=== PATIENT | female | born 1990 | race Caucasian/White ===

== ENCOUNTER 2017-09-25 22:47 | Emergency (ER) | payer OTHER ==
[~2017-09-25] VITALS: Ht 152.4 cm; Wt 90.7 kg
[2017-09-26] MEDS ORDERED: ZOFRAN ODT8 MG PO (06:49)
[2017-09-26] MEDS ORDERED: CIPRO500 MG PO (06:49)
[2017-09-26] MEDS ORDERED: PEPCID40 MG PO (06:49)
== END 2017-09-26 07:20 | disposition home or self-care (01) ==
LOC: ER 22:47
DX: K52.9 Noninfective gastroenteritis and colitis, unspecified (principal)

== ENCOUNTER 2017-09-29 12:10 | Emergency (ER) | payer OTHER ==
[~2017-09-29] VITALS: Ht 152.4 cm; Wt 90.7 kg
[~2017-09-29 12:10] MED LIST: CIPRO500 MG PO; PEPCID40 MG PO; ZOFRAN ODT8 MG PO
== END 2017-09-29 18:39 | disposition home or self-care (01) ==
LOC: ER 12:10
DX: K52.9 Noninfective gastroenteritis and colitis, unspecified (principal)

== ENCOUNTER 2021-12-16 09:14 | Emergency (ER) | payer OTHER ==
[~2021-12-16] VITALS: Ht 152.4 cm; Wt 97.5 kg
== END 2021-12-16 14:51 | disposition home or self-care (01) ==
LOC: ER 09:14
DX: K52.9 Noninfective gastroenteritis and colitis, unspecified (principal)